=== PATIENT | female | born 1955 | race Caucasian/White ===

== ENCOUNTER → 2017-09-13 | Outpatient (CLI) | payer MEDICAID ==
--- NOTE | 2017-09-14 15:55 | WOMENS IMAGING REPORT ---
EXAM DESCRIPTION: BILAT SCREENING MAMMO W/CAD COMPLETED DATE/TIME: 09/13/2017 10:43 am REASON FOR STUDY: ROUTINE SCREENING; Z12.31 Z12.31 ENCNTR SCREEN MAMMOGRAM FOR MALIGNANT NEOPLASM O F BECKA COMPARISON: [id number] TECHNIQUE: Standard craniocaudal and mediolateral oblique views of each breast recorded using [employer] l acquisition. LIMITATIONS: Positioning left. FINDINGS: Findings present which are benign by mammographic criteria. No suspicious masses, calcifi cations or architectural distortion. Pertinent benign findings: Bilateral microcalcifications. Read with the assistance of CAD. .[facility] - R2 Cenova Version 1.3 .[facility] - R2 Cenova Version 1.3 .[facility] - R2 Cenova Version 2.4 .[facility] - R2 Cenova Version 2.4 .[facility] - R2 Him Tech Version 9.2 Benign mammographic findings may include one or more of the following: Smooth masses, popcorn/rim/co arse calcifications, asymmetries, post-procedure changes, and lesions with long-standing stability. IMPRESSION: BENIGN MAMMOGRAPHIC FINDINGS. BIRADS 2 BREAST DENSITY: b. There are scattered areas of fibroglandular density. BIRAD: 2 BENIGN FINDING(S) RECOMMENDATION: ROUTINE SCREENING COMMENT: The patient has been notified of the results by letter per SA requirements. Additional no tification policies are in place for contacting patient with suspicious or incomplete findings. Quality ID #[id number]: The [employer] recommends an annual screening mammogram for women aged 40 years or over. This facility utilizes a reminder system to ensure that all patients receive reminder letters, and/or direct phone calls for appointments. This includes reminders for routine scr eening mammograms, diagnostic mammograms, or other Breast Imaging Interventions when appropriate. Th is patient will be placed in the appropriate reminder system. The [employer] ([employer]) has developed recommendations for screening MRI of the breast s in certain patient populations, to be used in conjunction with mammography. Breast MRI surveillanc e may be appropriate for women with more than 20% lifetime risk of developing breast cancer as deter mined by genetic testing, significant family history of the disease, or history of mantle radiation f or Hodgkins Disease. ACR Practice Guidelines 2008. TECHNICAL DOCUMENTATION: FINDING NUMBER: (1) ASSESSMENT: (1) JOB ID: [id number] [employer]- All Rights Reserved
== END ==
LOC: WI 10:17
PROVIDERS: ATTEND Family Medicine
DX: Z12.31 Encounter for screening mammogram for malignant neoplasm of breast (principal)
CPT/HCPCS: 77067

== ENCOUNTER 2018-07-06 20:57 | Emergency (ER) | payer MEDICAID ==
[~2018-07-06 20:57] MED LIST: EPINEPHRINE INJ 1 MG/10 ML DISP.SYRIN ONE
--- NOTE | 2018-07-06 21:14 | ER Document Report ---
ED General - General Stated Complaint: FALL Time Seen by Provider: 07/06/18 21:11 Cannot obtain history due to: Intubated, Other - arrest Notes: Patient is a 63-year-old female with uncertain past medical history who presents after having a cardiac arrest. Patient for clinical reasons is unable to provide history. EMS does report that when they arrived to the nursing facility they had been called for a cardiac arrest but nobody was performing CPR. Apparently earlier today the patient was vomiting darkish material but was not transported to the hospital. When EMS began to place the patient on monitor they noticed that she was pulseless and asystole. Standard protocols were followed and they did regain spontaneous circulation 2 minutes prior to when they would normally call the code. Patient was transported to the hospital with bradycardia and requirement of pacer pads. Immediately upon arrival to the emergency department the patient again went into asystolic arrest. TRAVEL OUTSIDE OF THE [place] IN LAST 30 DAYS: No - Related Data Allergies/Adverse Reactions: lithium [[place]] Allergy (Verified 09/24/15 11:40) Quinolones Allergy (Verified 09/24/15 11:40) Past Medical History - General Information source: Emergency Med Personnel Cannot obtain history due to: Unstable vital signs, Other - Social History Smoking Status: Unknown if Ever Smoked Frequency of alcohol use: None Drug Abuse: None Lives with: [facility] Family History: Reviewed & Not Pertinent - Past Medical History Cardiac Medical History: Reports: Hx Hypercholesterolemia Pulmonary Medical History: Reports: Hx Asthma Neurological Medical History: Reports: Hx Seizures Psychiatric Medical History: Reports: Hx Bipolar Disorder, Hx Depression Past Surgical History: Reports: Hx Abdominal Surgery - hernia, Hx Cholecystectomy, Hx Herniorrhaphy - Immunizations Hx Diphtheria, Pertussis, Tetanus Vaccination: Yes Review of Systems - Review of Systems -: Yes ROS unobtainable due to patient's medical condition Physical Exam - Vital signs Notes: PHYSICAL EXAMINATION: GENERAL: Pale, unresponsive HEAD: Atraumatic, normocephalic. EYES: Pupils fixed, dilated, nonreactive ENT: ET tube in place. NECK: Supple neck, no crepitus LUNGS: Breath sounds present bilaterally with bagging through Prashant airway HEART: No palpable pulses, bedside echocardiogram with cardiac standstill EXTREMITIES: no pitting or edema. NEUROLOGICAL: GCS 3 T PSYCH: Unable to obtain SKIN: Cool, pale Course - Re-evaluation Re-evalutation: 07/06/18 21:13 Patient presents after having over 20 minutes of downtime, initial rhythm of asystole, no bystander CPR ongoing when EMS arrived at the facility, 20 minutes of chest compressions prior to arrival with Ross with associated bradycardia and hypotension. Effectively immediately upon arrival the patient was noted again be without a pulse. ACLS measures were again undertaken. Patient received her 6 mg of epinephrine in total. She continued to be in asystole. Cardiac ultrasound did show standstill after 1 round of chest compressions. Code was discontinued at that time due to medical futility as the patient has had over 25 total minutes of pulselessness, ongoing asystole. The duration of her asystole does portend a extremely poor prognosis and I do believe it would be medically futile to continue aggressive ACLS at this point. Patient was declared at 2102 Discharge - Discharge Clinical Impression: Cardiac arrest, Asystole Disposition: Referrals: KODAK THOMPSON MD [Primary Care Provider] - Follow up as needed
== END 2018-07-06 23:52 | disposition expired ==
LOC: ER 20:57
PROC: 0BH17EZ Insertion of Endotracheal Airway into Trachea, Via Natural or Artificial Opening (ICD-10-PCS; principal; 2018-07-06)
DX: I46.9 Cardiac arrest, cause unspecified (principal); J45.909 Unspecified asthma, uncomplicated
CPT/HCPCS: 99285; 92950; 31500; J0171